=== PATIENT | female | born 1995 | race Caucasian/White ===

== ENCOUNTER 2017-03-06 09:16 | Emergency (ER) | payer OTHER ==
[2017-03-06 09:57] LABS: RAPID STREP SCREEN REAGENT QC YELLOW (YELLOW)
--- NOTE | 2017-03-06 11:47 | ED Physician Documentation ---
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 Other Past Medical History: lyme disease, PCOS - Past Surgical History Past Surgical History: No - Present Medications Home Medications: Ambulatory Orders Medication Instructions Recorded Confirmed Amoxicillin 500 mg PO Q8H #30 capsule 03/06/17 - Allergies Allergies/Adverse Reactions: Allergies Allergy/AdvReac Type Severity Reaction Status Date / Time No Known Drug Allergies Allergy Verified 03/06/17 09:37 - Social History Does the pt smoke?: Yes Smoking Status: Current every day smoker Does the pt drink ETOH?: Yes ETOH Use: Liquor Does the pt have substance abuse?: No - Immunizations Immunizations are current?: Yes - POLST Patient has POLST: No PD ED PE NORMAL - Vitals Vital signs reviewed: Yes - General General: Alert and oriented X 3 - HEENT HEENT: PERRL. 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 No: No adenopathy (ant no posterior, no pain with tracheal manip) - Cardiac Cardiac: RRR - Respiratory Respiratory: No respiratory distress, Clear bilaterally - Abdomen Abdomen: Soft, Non tender Results - Vitals Vitals: Vital Signs - 24 hr 03/06/17 09:35 Temperature 36.7 C Heart Rate 95 Respiratory 16 Rate Blood Pressure 128/83 H O2 Saturation 100 Oxygen O2 Source Room air - Labs Labs: Laboratory Tests 03/06/17 09:40 Group A Strep Rapid Negative PD MEDICAL DECISION MAKING - ED course ED course: meets centor criteria will tx Departure - Departure Disposition: 01 Home, Self Care Clinical Impression: Exudative pharyngitis Condition: Good Instructions: ED Strep Pharyngitis Poss Prescriptions: Amoxicillin 500 mg PO Q8H #30 capsule Forms: Activity restrictions
[2017-03-06 12:04] VITALS: BP 103/68
== END 2017-03-06 12:03 | disposition home or self-care (01) ==
LOC: ED 09:16
DX: J02.9 Acute pharyngitis, unspecified (principal); F17.200 Nicotine dependence, unspecified, uncomplicated
CPT/HCPCS: 87070; 87430; 99283